=== PATIENT | female | born 1970 | race Caucasian/White ===

== ENCOUNTER 2024-06-07 09:58 | Outpatient (CLI) | payer BC, MEDICAID, SELFPAY ==
--- NOTE | 2024-06-07 10:00 | MM_ITS ---
WS: [id number] SCREENING DIGITAL BREAST TOMOSYNTHESIS MAMMOGRAM WITH CAD HISTORY: SCREENING COMPARISON: None available. Bilateral CC and MLO with tomosynthesis and synthetic mammography submitted. Computer aided detection analyzed. Breast composition: There are scattered areas of fibroglandular density. Focal partially obscured asy mmetry in the anterior RIGHT breast just posterior to the nipple measures 11 x 19 mm. No correspondin g finding seen on the lateral projection. There are additional benign calcifications within each [address] [place] MM/[place] [id number] IMPRESSION: BI-RADS: 0-Incomplete: Need additional imaging evaluation FOLLOW UP: Need Additional Imaging RIGHT breast: Spot compression views (CC and MLO). True ML. Ultrasound to follo w if abnormality persists.
== END 2024-06-07 09:59 | disposition home or self-care (01) ==
LOC: MOBLMAM 10:05
PROVIDERS: PCP Nurse Practitioner Family; Visit Provider Nurse Practitioner Family
DX: Z12.31 Encounter for screening mammogram for malignant neoplasm of breast (principal); R92.323 Mammographic fibroglandular density, bilateral breasts; N64.89 Other specified disorders of breast; R92.1 Mammographic calcification found on diagnostic imaging of breast
CPT/HCPCS: 77063; 77067

== ENCOUNTER 2024-07-17 09:14 | Outpatient (CLI) | payer BC, MEDICAID, SELFPAY ==
--- NOTE | 2024-07-17 09:22 | MM_ITS ---
WS: [id number] ADDITIONAL VIEWS RIGHT MAMMOGRAM WITH DIGITAL BREAST TOMOSYNTHESIS. RIGHT BREAST ULTRASOUND HISTORY: ABNORMAL MAMMOGRAM COMPARISON: 06/07/2024 RIGHT MAMMOGRAM: Spot compression views and true ML with digital breast tomosynthesis and SM. Breast composition: There are scattered areas of fibroglandular density. Asymmetry persists in the anterior RIGHT breast and subareolar location predominantly in the upper ou ter quadrant. There is no mass at the density is obscuring detail. Benign calcifications. Ultrasound to follow. RIGHT BREAST ULTRASOUND 2-D and color Doppler imaging submitted. Ultrasound is obtained in the upper outer quadrant of the RIGHT breast to the upper inner quadrant al so. There is a dense area of fibroglandular tissue but there is no shadowing. No increased vascularit y or distortion. MM/MM diag RT tomosynthesis [id number] IMPRESSION: BI-RADS: 2 - Benign. FOLLOW UP: 1 Year Follow-up
== END 2024-07-17 09:15 | disposition home or self-care (01) ==
LOC: RAD 09:16
PROVIDERS: PCP Nurse Practitioner Family; Visit Provider Nurse Practitioner Family
DX: R92.8 Other abnormal and inconclusive findings on diagnostic imaging of breast (principal); R92.323 Mammographic fibroglandular density, bilateral breasts
CPT/HCPCS: 76642; 77061; G0279

== ENCOUNTER 2024-09-02 10:16 | Emergency (ER) | payer BC, MEDICAID, SELFPAY ==
[2024-09-02 10:26] VITALS: BP 125/67; PULSE 72; RESP 17; TEMP 36.4; O2SAT 98; BMI 26.6
--- NOTE | 2024-09-02 10:26 | XRR_ITS ---
PROCEDURE INFORMATION: Exam: XR Left Hand Exam date and time: 09/02/2024 10:34 AM Age: 54 years old Clinical indication: Pain; Swelling; Hand; Left; Additional info: Pain and swelling TECHNIQUE: Imaging protocol: Radiologic exam of the left hand. Views: 3 or more views. COMPARISON: No relevant prior studies available. FINDINGS: Bones/joints: Normal. Soft tissues: Normal. XR/XR hand LT min 3V* [id number] IMPRESSION: No acute fracture or dislocation.
--- NOTE | 2024-09-02 10:32 | W.ED.EXTPRO ---
HPI - Extremity Problem General: Chief complaint: Extremity Injury, Upper Stated complaint: Left hand swollen and pain Time Seen by Provider: 09/02/24 10:26 History of Present Illness: 54-year-old female presents emergency room with complaints of pain in the left fifth MCP joints. She has a couple of superficial cuts from using a knife in the kitchen in the last week. She not had any fever sweats or chills. She also states she dropped a knife handle bluntly on the joint earlier in the week. No previous surgery to that area. She is unsure of her last tetanus Related Data Home Medications Medication Instructions Recorded Confirmed atorvastatin 40 mg tablet 40 mg PO QAM 09/02/24 09/02/24 cetirizine 10 mg tablet 10 mg PO DAILY 09/02/24 09/02/24 dapagliflozin propanediol 10 mg 10 mg PO DAILY 09/02/24 09/02/24 tablet (Farxiga) dulaglutide 1.5 mg/0.5 mL 1.5 mg SUBCUT Q7D 09/02/24 09/02/24 subcutaneous [facility] fluoxetine 40 mg capsule 40 mg PO QAM 09/02/24 09/02/24 hydroxychloroquine 200 mg tablet 200 mg PO BID 09/02/24 09/02/24 insulin aspart U-100 100 unit/mL See Rx Instructions .Route .COMPLEX 09/02/24 09/02/24 (3 mL) subcutaneous pen insulin glargine 100 unit/mL (3 See Rx Instructions .Route .COMPLEX 09/02/24 09/02/24 mL) subcutaneous pen (Lantus Solostar U-100 Insulin) metformin 500 mg tablet,extended 1,000 mg PO QPM 09/02/24 09/02/24 release 24 hr pregabalin 75 mg capsule 75 mg PO BID 09/02/24 09/02/24 Previous Rx's Medication Instructions Recorded prednisone 20 mg tablet 20 mg PO TID #15 tabs 09/02/24 Allergies Allergy/AdvReac Type Severity Reaction Status Date / Time codeine Allergy Unknown Verified 09/02/24 10:30 Review of Systems Musc: Reports: joint pain and joint swelling Physical Exam Const: COMMON NORMALS: no acute distress GENERAL APPEARANCE: cooperative and comfortable ORIENTATION/CONSCIOUSNESS: Yes awake, Yes oriented to person, Yes oriented to place and Yes oriented to time HENMT: COMMON NORMALS: normocephalic, atraumatic and hearing grossly normal bilaterally HEAD & SCALP: normocephalic and atraumatic Resp: COMMON NORMALS: normal respiratory effort, No retractions, No use of accessory muscles and clear to auscultation bilaterally AUSCULTATION: clear to auscultation bilaterally Cardio: COMMON NORMALS: regular rate, regular rhythm and No murmurs present (Cardio) RATE: regular rate RHYTHM: regular rhythm GI: COMMON NORMALS: Soft to palpation and No hepatosplenomegaly present AUSCULTATION: Yes normoactive bowel sounds PALPATION: Yes Soft to palpation, No Tenderness to palpation present (GI), No Guarding due to palpation present (GI) and Yes No hepatosplenomegaly present Extremity: COMMON NORMALS: normal to inspection, capillary refill normal, no clubbing, cyanosis or edema, no calf tenderness and no pedal edema OTHER: Mild swelling of the fifth MP joint no induration no erythema mildly tender patient can flex and extend and hold against resistance actively. Neuro: SENSORIUM/ORIENTATION: Yes oriented to person, Yes oriented to place and Yes oriented to time Skin: COMMON NORMALS: no rashes or lesions noted GENERAL SKIN EXAM: no rashes or lesions noted Course Vital Signs: Vital signs: Vital Signs Temperature 97.5 F L 09/02/24 10:26 Pulse Rate 72 09/02/24 12:30 Respiratory Rate 17 09/02/24 10:26 Blood Pressure 144/58 09/02/24 12:30 Pulse Oximetry 92 09/02/24 12:30 Oxygen Delivery Me thod Room Air 09/02/24 10:26 MDM - Extremity (Nontraumatic) Medical Decision Making No acute findings on x-ray no elevation white count sed rate normal and only there is an infection like an inflammatory response mildly from trauma. Will start on steroid taper beginning tomorrow follow-up as needed Lab Data I reviewed the patient's lab results. 09/02/24 10:55 09/02/24 11:22 Radiology Impressions Hand X-Ray 09/02/24 10:26 IMPRESSION: No acute fracture or dislocation. Laboratory Results WBC 8.79 10^3/uL (3.29-11.43) 09/02/24 10:55 RBC 4.87 10^6/uL (3.85-5.65) 09/02/24 10:55 Hgb 14.40 g/dL (11.27-16.99) 09/02/24 10:55 Hct 45.1 % (36-47) 09/02/24 10:55 MCV 92.6 fl (85-98) 09/02/24 10:55 MCH 29.6 pg (27-33) 09/02/24 10:55 MCHC 31.9 g/dL (30-55) 09/02/24 10:55 RDW 13.5 % (12.1-15.1) 09/02/24 10:55 Plt Count 233 10^3/cmm (157-399) 09/02/24 10:55 MPV 11.1 fL (7.4-10.4) H 09/02/24 10:55 Neut % (Auto) 61.3 % 09/02/24 10:55 Lymph % (Auto) 25.1 % 09/02/24 10:55 [place] % (Auto) 5.8 % 09/02/24 10:55 Eos % (Auto) 6.7 % 09/02/24 10:55 Baso % (Auto) 0.9 % 09/02/24 10:55 Neut # (Auto) 5.38 10^3/uL (1.8-7.7) 09/02/24 10:55 Lymph # (Auto) 2.2 10^3/uL (0.8-4.8) 09/02/24 10:55 [place] # (Auto) 0.5 10^3/uL (0.2-0.9) 09/02/24 10:55 Eos # (Auto) 0.6 10^3/uL (0.0-0.8) 09/02/24 10:55 Baso # (Auto) 0.1 10^3/uL (0.0-0.1) 09/02/24 10:55 Nucleated RBC % (auto) 0 % 09/02/24 10:55 Nucleated RBCs # 0.0 /100WBC 09/02/24 10:55 ESR 10 mm/hr (0-15) 09/02/24 10:55 Sodium 138 mmol/L (136-145) 09/02/24 11:22 Potassium 4.6 mmol/L (3.5-5.1) 09/02/24 11:22 Chloride 103 mmol/L (98-107) 09/02/24 11:22 Carbon Dioxide 22 mmol/L (22-29) 09/02/24 11:22 Anion Gap 17.6 (5-19) 09/02/24 11:22 BUN 20 mg/dL (6-20) 09/02/24 11:22 Creatinine 0.6 mg/dL (0.5-0.9) 09/02/24 11:22 GFR Calculation 105.0 mL/min (90-130) 09/02/24 11:22 Glucose 177 mg/dL (65-115) H 09/02/24 11:22 Calculated Osmolality 293 mOsm/kg (285-295) 09/02/24 11:22 Calcium 9.3 mg/dL (8.5-10.5) 09/02/24 11:22 Total Bilirubin 0.5 mg/dL (0.15-1.2) 09/02/24 11:22 AST 15 U/L (0-32) 09/02/24 11:22 ALT 16 U/L (0-33) 09/02/24 11:22 Alkaline Phosphatase 59 U/L (35-105) 09/02/24 11:22 Total Protein 7.4 g/dL (6.6-8.7) 09/02/24 11:22 Albumin 4.5 g/dL (3.5-5.2) 09/02/24 11:22 Globulin 2.9 g/dL (1.3-4.6) 09/02/24 11:22 All radiology interpretation(s) finalized by discharge Discharge Plan Discharge Patient Disposition: Home Clinical Impression: Arthralgia Condition: Stable Prescriptions: New prednisone 20 mg tablet 20 mg PO TID Qty: 15 0RF Rx Instructions: 1 p.o. 3 times daily x3 days, 1 p.o. twice daily x2 days, 1 p.o. daily x2 days No Action fluoxetine 40 mg capsule 40 mg PO QAM atorvastatin 40 mg tablet 40 mg PO QAM cetirizine 10 mg tablet 10 mg PO DAILY hydroxychloroquine 200 mg tablet 200 mg PO BID metformin 500 mg tablet extended release 24 hr 1,000 mg PO QPM insulin aspart U-100 100 unit/mL (3 mL) insulin pen See Rx Instructions .ROUTE .COMPLEX Rx Instructions: USE PER SLIDING SCALE WITH MEALS. MAX DAILY DOSE OF 30 UNITS. pregabalin 75 mg capsule 75 mg PO BID insulin glargine [Lantus Solostar U-100 Insulin] 100 unit/mL (3 mL) insulin pen See Rx Instructions .ROUTE .COMPLEX Rx Instructions: ADMINISTER 14 UNITS UNDER THE SKIN ONCE DAILY. INCREASE DIRECTED. MAX DAILY DOSE 24 UNITS dapagliflozin propanediol [Farxiga] 10 mg tablet 10 mg PO DAILY Trulicity 1.5 mg/0.5 mL pen injector 1.5 mg SUBCUT Q7D Rx Instructions: on WEDNESDAY Discharge Orders: Discharge ED (Routine); Ordered 09/02/24 Ordered By: Quinten Montenegro Referrals: Josi Garcia APRN [Primary Care Provider] - Discharge Diet: Usual diet Discharge Activity: Increase activity as tolerated Patient Instructions: Opioid Safety, Pain Management Activity Restrictions/Additional Instructions: Thank you for choosing [facility] [place] for your healthcare needs today. It is very important that you follow up as instructed or that you return to the Emergency Department should you have concerns or if your condition changes or worsens in any way. You are seen in the emergency room with pain in the feels knuckle of her left hand. There is no sign of infection there is some mild inflammation. Will start you on a course of steroids follow-up with your primary care doctor. Coding Level of Care Code ED [employer] for Ludivina Pink
[2024-09-02 11:05] LABS: Basophils # 0.1 10^3/uL (0.0-0.1); Basophils % 0.9 %; Eosinophils # 0.6 10^3/uL (0.0-0.8); Eosinophils % 6.7 %; Hematocrit 45.1 % (36-47); Lymphocytes # 2.2 10^3/uL (0.8-4.8); Lymphocytes % 25.1 %; Mean Corpuscular HGB Conc 31.9 g/dL (30-55); Mean Corpuscular Hemoglobin 29.6 pg (27-33); Mean Corpuscular Volume 92.6 fl (85-98); Mean Platelet Volume 11.1 fL (7.4-10.4); Monocytes # 0.5 10^3/uL (0.2-0.9); Monocytes % 5.8 %; Neutrophils # 5.38 10^3/uL (1.8-7.7); Neutrophils % 61.3 %; Nucleated Red Blood Cells % 0 %; Platelet Count 233 10^3/cmm (157-399); Red Blood Count 4.87 10^6/uL (3.85-5.65); Red Cell Distribution Width 13.5 % (12.1-15.1); White Blood Count 8.79 10^3/uL (3.29-11.43)
[2024-09-02 11:08] LABS: Erythrocyte Sedimentation Rate 10 mm/hr (0-15)
[2024-09-02] MEDS: tetanus-dipt-pertussis 0.5 mL SDV IM (11:12)
[2024-09-02] MEDS: ketorolac 60 mg/2 mL INJ IM (11:15)
[2024-09-02 11:28] VITALS: BP 123/77; PULSE 66; O2SAT 97
[2024-09-02 11:45] LABS: Alanine Aminotransferase 16 U/L (0-33); Albumin Level 4.5 g/dL (3.5-5.2); Alkaline Phosphatase 59 U/L (35-105); Anion Gap 17.6 (5-19); Aspartate Amino Transferase 15 U/L (0-32); Blood Urea Nitrogen 20 mg/dL (6-20); Calcium 9.3 mg/dL (8.5-10.5); Carbon Dioxide 22 mmol/L (22-29); Chloride 103 mmol/L (98-107); Creatinine Clr Calc Pharmacy 97.9146; Globulin 2.9 g/dL (1.3-4.6); Glucose 177 mg/dL (65-115); Osmolality Calculated 293 mOsm/kg (285-295); Potassium 4.6 mmol/L (3.5-5.1); Sodium 138 mmol/L (136-145); Total Bilirubin 0.5 mg/dL (0.15-1.2); Total Protein 7.4 g/dL (6.6-8.7)
[2024-09-02 12:30] VITALS: BP 144/58; PULSE 72; O2SAT 92
== END 2024-09-02 12:33 | disposition home or self-care (01) ==
PROVIDERS: Emergency Provider Family Medicine; PCP Nurse Practitioner Family
DX: M25.542 Pain in joints of left hand (principal); Z79.4 Long term (current) use of insulin
CPT/HCPCS: 36415; 73130; 80053; 85025; 85651; 90471; 90715; 96372; 99284; J1885